=== PATIENT | female | born 1960 | race Caucasian/White ===

== ENCOUNTER 2016-06-06 16:32 | Inpatient (IN) | payer MEDICAID, OTHER ==
[~2016-06-06] VITALS: Ht 170.2 cm; Wt 68.2 kg
[~2016-06-06 16:32] MED LIST: ADV250 IH; DIVA500T69 PO; OLAN10TA22 PO; PANT40TA25 PO; PARO20TA24 PO
[2016-06-06 17:39] LABS: BASOPHILS # (AUTO) 0.02 K/uL (0.00-0.20); BASOPHILS % (AUTO) 0.4 % (0.0-2.0); EOSINOPHILS # (AUTO) 0.24 K/uL (0.00-0.70); EOSINOPHILS % (AUTO) 5.15 % (1.0-6.0); HEMATOCRIT 37.6 % (36-46); HEMOGLOBIN 12.7 g/dL (12.0-16.0); LYMPHOCYTES % (AUTO) 42.3 % (22.0-44.0); MEAN CORPUSCULAR HEMOGLOBIN 31.8 pg (26.0-34.0); MEAN CORPUSCULAR HGB CONC 33.8 G/dL (31.0-37.0); MEAN CORPUSCULAR VOLUME 94 fL (80-100); MONOCYTES # (AUTO) 0.6 K/uL (0.1-1.0); MONOCYTES % (AUTO) 12.3 % (2.0-9.0); NEUTROPHILS # (AUTO) 1.9 K/uL (1.8-7.7); NEUTROPHILS % (AUTO) 39.9 % (40.0-70.0); PLATELET COUNT (AUTO) 174 K/uL (150-450); WHITE BLOOD COUNT (AUTO) 4.6 K/uL (4.5-11.0)
[2016-06-06 17:51] LABS: ANION GAP 7 mmol/L (8-16); CALCIUM, TOTAL 8.2 mg/dL (8.8-10.5); CARBON DIOXIDE 32 mmol/L (22-29); CHLORIDE 104 mmol/L (98-107); CREATININE 0.81 mg/dL (0.60-1.30); GLOMERULAR FILTR. RATE CALC > 60 mL/min (>60); SODIUM SERUM 143 mmol/L (136-145); UREA NITROGEN, BLOOD 13 mg/dL (7-18)
[2016-06-06 17:56] LABS: ALANINE AMINOTRANSFERASE 11 U/L (12-78); ALBUMIN 3.2 g/dL (3.4-5.0); ASPARTATE AMINOTRANSFERASE 16 U/L (15-37); BILIRUBIN,TOTAL 0.2 mg/dL (0.1-1.0); TOTAL PROTEIN, SERUM 6.3 g/dL (6.4-8.2)
[2016-06-06] MEDS ORDERED: ACETAMINOPHEN 500 MG TABLET PO ONE (18:15)
[2016-06-06] MEDS ORDERED: HALOPERIDOL 5 MG TABLET PO PRN (20:00)
[2016-06-06 21:26] VITALS: BP 109/74
[2016-06-06] MEDS: ZOLPIDEM TARTRATE 10 MG TABLET PO PRN (21:40)
[2016-06-06] MEDS ORDERED: IBUPROFEN 400 MG TABLET PO PRN (22:00)
[2016-06-06] MEDS ORDERED: INFLUENZA VIRUS VACCINE QVS 2016-17 (3YR+)/PF 60 MCG/0.5 ML SYRINGE IM ONE (22:15)
[2016-06-06] MEDS ORDERED: -PHARMACY VACCINE NOTE- MISC ONE ×2 (22:15)
[2016-06-07 02:40] VITALS: BP 101/60
[2016-06-07 08:02] VITALS: BP 113/68
[2016-06-07] MEDS: PANTOPRAZOLE SODIUM 40 MG DR TABLET PO SCH (09:29)
[2016-06-07] MEDS: FLUTICASONE/VILANTEROL 200-25 MCG/INH INHALER [14] IH SCH (09:29)
[2016-06-07] MEDS: LORazepam 2 MG TABLET PO PRN ×2 (09:29→16:06)
[2016-06-07] MEDS: NICOTINE 7 MG/24 HOUR PATCH TD SCH (09:29)
[2016-06-07] MEDS ORDERED: INFLUENZA VIRUS VACCINE QVS 2016-17 (3YR+)/PF 60 MCG/0.5 ML SYRINGE IM ONE (12:00)
[2016-06-07] MEDS ORDERED: PNEUMOCOCCAL VACCINE POLYVALENT 0.5 ML VIAL [PPSV23] IM ONE (13:30)
[2016-06-07] MEDS: PARoxetine HCL 20 MG TABLET PO SCH (14:39)
[2016-06-07 16:10] VITALS: BP 109/61
[2016-06-07] MEDS: DIVALPROEX SODIUM 500 MG DR TABLET PO SCH (20:28)
[2016-06-07] MEDS: OLANZapine 10 MG TABLET PO SCH (20:28)
[2016-06-08 08:33] VITALS: BP 121/66
[2016-06-08] MEDS: LORazepam 2 MG TABLET PO PRN ×2 (09:10→16:34)
[2016-06-08] MEDS: FLUTICASONE/VILANTEROL 200-25 MCG/INH INHALER [14] IH SCH (09:10)
[2016-06-08] MEDS: NICOTINE 7 MG/24 HOUR PATCH TD SCH (09:10)
[2016-06-08] MEDS: PARoxetine HCL 20 MG TABLET PO SCH (09:10)
[2016-06-08] MEDS: PANTOPRAZOLE SODIUM 40 MG DR TABLET PO SCH (09:10)
[2016-06-08 16:24] VITALS: BP 112/67
[2016-06-08] MEDS: DIVALPROEX SODIUM 500 MG DR TABLET PO SCH (20:28)
[2016-06-08] MEDS: OLANZapine 10 MG TABLET PO SCH (20:28)
[2016-06-09 06:00] VITALS: BP 111/55
[2016-06-09 08:00] VITALS: BP 114/58
[2016-06-09] MEDS: PANTOPRAZOLE SODIUM 40 MG DR TABLET PO SCH (08:51)
[2016-06-09] MEDS: PARoxetine HCL 20 MG TABLET PO SCH (08:51)
[2016-06-09] MEDS: FLUTICASONE/VILANTEROL 200-25 MCG/INH INHALER [14] IH SCH (08:59)
[2016-06-09] MEDS: NICOTINE 7 MG/24 HOUR PATCH TD SCH (09:00)
[2016-06-09 16:09] VITALS: BP 111/65
[2016-06-09] MEDS: LORazepam 2 MG TABLET PO PRN (16:25)
[2016-06-09] MEDS: OLANZapine 10 MG TABLET PO SCH (20:16)
[2016-06-09] MEDS: DIVALPROEX SODIUM 500 MG DR TABLET PO SCH (20:17)
[2016-06-09] MEDS: ZOLPIDEM TARTRATE 10 MG TABLET PO PRN (21:01)
[2016-06-10 07:05] VITALS: BP 100/62
[2016-06-10 08:11] VITALS: BP 109/70
[2016-06-10] MEDS: PANTOPRAZOLE SODIUM 40 MG DR TABLET PO SCH (09:35)
[2016-06-10] MEDS: FLUTICASONE/VILANTEROL 200-25 MCG/INH INHALER [14] IH SCH (09:35)
[2016-06-10] MEDS: NICOTINE 7 MG/24 HOUR PATCH TD SCH (09:35)
[2016-06-10] MEDS: PARoxetine HCL 20 MG TABLET PO SCH (09:36)
[2016-06-10] MEDS: LORazepam 2 MG TABLET PO PRN ×2 (09:36→15:39)
[2016-06-10 16:31] VITALS: BP 100/74
[2016-06-10] MEDS: OLANZapine 10 MG TABLET PO SCH (20:09)
[2016-06-10] MEDS: DIVALPROEX SODIUM 500 MG DR TABLET PO SCH (20:09)
[2016-06-10] MEDS: ZOLPIDEM TARTRATE 10 MG TABLET PO PRN (21:02)
[2016-06-11 07:23] VITALS: BP 110/72
[2016-06-11 08:35] VITALS: BP 105/66
[2016-06-11] MEDS: PANTOPRAZOLE SODIUM 40 MG DR TABLET PO SCH (09:25)
[2016-06-11] MEDS: FLUTICASONE/VILANTEROL 200-25 MCG/INH INHALER [14] IH SCH (09:25)
[2016-06-11] MEDS: PARoxetine HCL 20 MG TABLET PO SCH (09:25)
[2016-06-11] MEDS: NICOTINE 7 MG/24 HOUR PATCH TD SCH (09:26)
[2016-06-11 16:08] VITALS: BP 116/75
[2016-06-11] MEDS: LORazepam 2 MG TABLET PO PRN (16:11)
[2016-06-11] MEDS: DIVALPROEX SODIUM 500 MG DR TABLET PO SCH (20:14)
[2016-06-11] MEDS: OLANZapine 10 MG TABLET PO SCH (20:14)
[2016-06-11] MEDS: ZOLPIDEM TARTRATE 10 MG TABLET PO PRN (21:02)
[2016-06-12 06:33] VITALS: BP 110/72
[2016-06-12 08:22] VITALS: BP 104/67
[2016-06-12] MEDS: PANTOPRAZOLE SODIUM 40 MG DR TABLET PO SCH (08:53)
[2016-06-12] MEDS: PARoxetine HCL 20 MG TABLET PO SCH (08:53)
[2016-06-12] MEDS: NICOTINE 7 MG/24 HOUR PATCH TD SCH (09:59)
[2016-06-12] MEDS: FLUTICASONE/VILANTEROL 200-25 MCG/INH INHALER [14] IH SCH (09:59)
[2016-06-12] MEDS: LORazepam 2 MG TABLET PO PRN ×2 (10:32→17:27)
[2016-06-12 16:12] VITALS: BP 108/66
[2016-06-12] MEDS: ZOLPIDEM TARTRATE 10 MG TABLET PO PRN (20:23)
[2016-06-12] MEDS: OLANZapine 10 MG TABLET PO SCH (20:23)
[2016-06-12] MEDS: DIVALPROEX SODIUM 500 MG DR TABLET PO SCH (20:23)
[2016-06-13 03:03] VITALS: BP 106/70
[2016-06-13 08:15] VITALS: BP 126/81
[2016-06-13] MEDS: FLUTICASONE/VILANTEROL 200-25 MCG/INH INHALER [14] IH SCH (08:45)
[2016-06-13] MEDS: PANTOPRAZOLE SODIUM 40 MG DR TABLET PO SCH (08:45)
[2016-06-13] MEDS: PARoxetine HCL 20 MG TABLET PO SCH (08:46)
[2016-06-13] MEDS: NICOTINE 7 MG/24 HOUR PATCH TD SCH (08:46)
[2016-06-13] MEDS: LORazepam 2 MG TABLET PO PRN ×2 (08:52→16:14)
[2016-06-13 16:08] VITALS: BP 105/62
[2016-06-13] MEDS: OLANZapine 10 MG TABLET PO SCH (20:14)
[2016-06-13] MEDS: DIVALPROEX SODIUM 500 MG DR TABLET PO SCH (20:14)
[2016-06-13] MEDS: ZOLPIDEM TARTRATE 10 MG TABLET PO PRN (20:56)
[2016-06-14 06:33] VITALS: BP 107/65
[2016-06-14 08:35] VITALS: BP 100/62
[2016-06-14] MEDS: NICOTINE 7 MG/24 HOUR PATCH TD SCH (08:42)
[2016-06-14] MEDS: FLUTICASONE/VILANTEROL 200-25 MCG/INH INHALER [14] IH SCH (08:42)
[2016-06-14] MEDS: PANTOPRAZOLE SODIUM 40 MG DR TABLET PO SCH (08:42)
[2016-06-14] MEDS: PARoxetine HCL 20 MG TABLET PO SCH (08:42)
[2016-06-14] MEDS ORDERED: FLUT1BLS PO (14:24)
== END 2016-06-14 14:50 | disposition home or self-care (01) | DRG 750 ==
LOC: EMS 16:34 → B3A 19:53
PROVIDERS: ADMIT Psychiatry & Neurology Psychiatry; ATTEND Psychiatry & Neurology Psychiatry
PROC: 3E0234Z Introduction of Serum, Toxoid and Vaccine into Muscle, Percutaneous Approach (ICD-10-PCS; principal; 2016-06-07)
PROC: 3E0234Z Introduction of Serum, Toxoid and Vaccine into Muscle, Percutaneous Approach (ICD-10-PCS; 2016-06-07)
DX: F25.9 Schizoaffective disorder, unspecified (principal); E46 Unspecified protein-calorie malnutrition; R45.851 Suicidal ideations; J44.9 Chronic obstructive pulmonary disease, unspecified; I10 Essential (primary) hypertension; E78.5 Hyperlipidemia, unspecified; F31.9 Bipolar disorder, unspecified; R07.89 Other chest pain; E78.00 Pure hypercholesterolemia, unspecified; F17.210 Nicotine dependence, cigarettes, uncomplicated; Z88.8 Allergy status to other drugs, medicaments and biological substances; Z88.0 Allergy status to penicillin; Z91.013 Allergy to seafood; Z79.899 Other long term (current) drug therapy; Z79.51 Long term (current) use of inhaled steroids; Z23 Encounter for immunization; Z68.23 Body mass index [BMI] 23.0-23.9, adult
CPT/HCPCS: 71100; 90471; 99285; G0480

== ENCOUNTER 2017-02-11 11:55 | Emergency (ER) | payer MEDICAID, OTHER ==
[~2017-02-11] VITALS: Ht 170.2 cm; Wt 68.8 kg
[~2017-02-11 11:55] MED LIST changes: -ADV250 IH; +FLUT1BLS PO
[2017-02-11] MEDS ORDERED: OLAN5TAB2 PO (12:12)
[2017-02-11] MEDS ORDERED: KETOROLAC TROMETHAMINE 30 MG/ML VIAL IVP ONE (12:15)
[2017-02-11] MEDS ORDERED: SODIUM CHLORIDE 0.9% 1,000 ML IV ONE (12:15)
[2017-02-11 12:26] VITALS: BP 136/74
[2017-02-11 12:29] LABS: BASOPHILS % (AUTO) 0.4 % (0.0-2.0); EOSINOPHILS % (AUTO) 2.8 % (1.0-6.0); HEMATOCRIT 36.4 % (36-46); HEMOGLOBIN 12.6 g/dL (12.0-16.0); LYMPHOCYTES # (AUTO) 1.9 K/uL (1.0-4.8); LYMPHOCYTES % (AUTO) 33.8 % (22.0-44.0); MEAN CORPUSCULAR HGB CONC 34.8 G/dL (31.0-37.0); MEAN CORPUSCULAR VOLUME 95 fL (80-100); MONOCYTES # (AUTO) 0.7 K/uL (0.1-1.0); MONOCYTES % (AUTO) 11.8 % (2.0-9.0); NEUTROPHILS # (AUTO) 2.9 K/uL (1.8-7.7); NEUTROPHILS % (AUTO) 51.2 % (40.0-70.0); PLATELET COUNT (AUTO) 272 K/uL (150-450); RED BLOOD CELL COUNT(AUTO) 3.83 MIL/uL (4.00-5.20)
[2017-02-11 12:38] LABS: ANION GAP 4 mmol/L (8-16); CALCIUM, TOTAL 8.5 mg/dL (8.8-10.5); CARBON DIOXIDE 33 mmol/L (22-29); CHLORIDE 106 mmol/L (98-107); CREATININE 0.89 mg/dL (0.60-1.30); GLOMERULAR FILTR. RATE CALC > 60 mL/min (>60); GLUCOSE,RANDOM 127 mg/dL (70-110); POTASSIUM 4.3 mmol/L (3.5-5.1); SODIUM SERUM 143 mmol/L (136-145); UREA NITROGEN, BLOOD 16 mg/dL (7-18)
[2017-02-11 12:44] LABS: ALANINE AMINOTRANSFERASE 16 U/L (12-78); ALBUMIN 3.3 g/dL (3.4-5.0); ALKALINE PHOSPHATASE 59 U/L (46-116); ASPARTATE AMINOTRANSFERASE 19 U/L (15-37); BILIRUBIN,TOTAL 0.2 mg/dL (0.1-1.0); LIPASE 221 U/L (73-393); TOTAL PROTEIN, SERUM 6.8 g/dL (6.4-8.2)
== END 2017-02-11 13:12 | disposition home or self-care (01) ==
LOC: EMS 11:56
DX: R10.32 Left lower quadrant pain (principal); R10.12 Left upper quadrant pain; J44.9 Chronic obstructive pulmonary disease, unspecified; E78.00 Pure hypercholesterolemia, unspecified; I10 Essential (primary) hypertension; F17.210 Nicotine dependence, cigarettes, uncomplicated; Z88.6 Allergy status to analgesic agent; Z88.0 Allergy status to penicillin; Z91.013 Allergy to seafood; Z88.8 Allergy status to other drugs, medicaments and biological substances
CPT/HCPCS: 36415; 51701; 74176; 80053; 83690; 84484; 85025; 93005; 96374; 99285; 99406; J1885; J7030

== ENCOUNTER 2021-09-14 22:25 | Emergency (ER) | payer OTHER ==
[~2021-09-14] VITALS: Ht 175.3 cm; Wt 77.3 kg
[~2021-09-14 22:25] MED LIST changes: -FLUT1BLS PO; +OLAN5TAB52 PO; +PANT-31 PO; -PANT40TA25 PO; +PARO-38 PO; -PARO20TA24 PO
[2021-09-15] MEDS ORDERED: LORazepam 1 MG TABLET PO ONE (04:00)
[2021-09-15] MEDS ORDERED: OLANZapine 5 MG RAPDIS TABLET PO ONE (04:00)
[2021-09-15 08:00] LABS: AMPHET/METH SCREEN,URINE POSITIVE (NEGATIVE); BARBITURATE SCREEN, URINE NEGATIVE (NEGATIVE); BENZODIAZEPINES SCREEN,URINE NEGATIVE (NEGATIVE); CANNABINOID SCREEN,URINE POSITIVE (NEGATIVE); COCAINE SCREEN,URINE NEGATIVE (NEGATIVE); METHADONE SCREEN, URINE NEGATIVE (NEGATIVE); OPIATE SCREEN,URINE NEGATIVE (NEGATIVE)
[2021-09-15 08:05] LABS: PHENCYCLIDINE SCREEN,URINE NEGATIVE (NEGATIVE)
[2021-09-15 12:15] VITALS: BP 130/75
== END 2021-09-15 14:36 | disposition home or self-care (01) ==
LOC: EMS 22:40
DX: F20.9 Schizophrenia, unspecified (principal); F15.20 Other stimulant dependence, uncomplicated; J44.1 Chronic obstructive pulmonary disease with (acute) exacerbation; E78.00 Pure hypercholesterolemia, unspecified; F31.9 Bipolar disorder, unspecified; I10 Essential (primary) hypertension
CPT/HCPCS: 99283